=== PATIENT | male | born 1955 | race Caucasian/White ===

== ENCOUNTER 2022-08-09 12:20 | Inpatient (IN) | payer MEDICARE, MEDICAID ==
[~2022-08-09] VITALS: Ht 162.6 cm; Wt 70.3 kg
[~2022-08-09 12:20] MED LIST: APIX5TAB PO; DILT90 PO; HYDR10SY16 PO; METO25 PO; OXYC1TAB6 PO; TAMS0.4C32 PO; TRAM50TA4 PO
[2022-08-09 12:53] LABS: COVID AG,FIA SOURCE NASOPHARYNGEAL
[2022-08-09 12:59] LABS: ANION GAP 7 mmol/L (8-16); CALCIUM, TOTAL 8.4 mg/dL (8.8-10.5); CARBON DIOXIDE 29 mmol/L (22-29); CHLORIDE 107 mmol/L (98-107); CREATININE 0.92 mg/dL (0.60-1.30); GLUCOSE,RANDOM 160 mg/dL (70-110); POTASSIUM 3.4 mmol/L (3.5-5.1); SODIUM SERUM 143 mmol/L (136-145); UREA NITROGEN, BLOOD 6 mg/dL (7-18)
[2022-08-09 13:01] LABS: BASOPHILS % (AUTO) 1.3 % (0.0-2.0); EOSINOPHILS % (AUTO) 7.3 % (1.0-6.0); LYMPHOCYTES # (AUTO) 4.1 K/uL (1.0-4.8); LYMPHOCYTES % (AUTO) 64.8 % (22.0-44.0); MEAN CORPUSCULAR HEMOGLOBIN 29.6 pg (26.0-34.0); MEAN CORPUSCULAR HGB CONC 32.5 G/dL (31.0-37.0); MEAN CORPUSCULAR VOLUME 91 fL (80-100); MONOCYTES # (AUTO) 0.2 K/uL (0.1-1.0); MONOCYTES % (AUTO) 3.8 % (2.0-9.0); NEUTROPHILS # (AUTO) 1.4 K/uL (1.8-7.7); NEUTROPHILS % (AUTO) 22.8 % (40.0-70.0); PLATELET COUNT (AUTO) 153 K/uL (150-450); RED BLOOD CELL COUNT(AUTO) 4.72 MIL/uL (4.50-5.90)
[2022-08-09 13:02] LABS: GLOMERULAR FILTR. RATE CALC > 60 mL/min (>60)
[2022-08-09 13:04] LABS: ALANINE AMINOTRANSFERASE 16 U/L (12-78); ALBUMIN 3.6 g/dL (3.4-5.0); ALKALINE PHOSPHATASE 103 U/L (46-116); ASPARTATE AMINOTRANSFERASE 22 U/L (15-37); BILIRUBIN,TOTAL 0.3 mg/dL (0.1-1.0); TOTAL PROTEIN, SERUM 7.1 g/dL (6.4-8.2)
[2022-08-09] MEDS ORDERED: ACETAMINOPHEN 325 MG TABLET PO ONE (18:00)
[2022-08-10 03:52] LABS: AMPHET/METH SCREEN,URINE NEGATIVE (NEGATIVE); BARBITURATE SCREEN, URINE NEGATIVE (NEGATIVE); BENZODIAZEPINES SCREEN,URINE NEGATIVE (NEGATIVE); CANNABINOID SCREEN,URINE NEGATIVE (NEGATIVE); COCAINE SCREEN,URINE NEGATIVE (NEGATIVE); METHADONE SCREEN, URINE NEGATIVE (NEGATIVE); OPIATE SCREEN,URINE NEGATIVE (NEGATIVE)
[2022-08-10 03:53] LABS: PHENCYCLIDINE SCREEN,URINE NEGATIVE (NEGATIVE)
[2022-08-10] MEDS ORDERED: MELATONIN 5 MG TABLET PO ONE (04:00)
[2022-08-10] MEDS ORDERED: ChlordiazePOXIDE HCL 25 MG CAPSULE PO ONE ×2 (06:45→09:00)
[2022-08-10] MEDS ORDERED: POTASSIUM CHLORIDE 10 MEQ ER TABLET PO ONE (08:45)
[2022-08-10] MEDS ORDERED: ONDANSETRON HCL 4 MG TABLET PO ONE (09:00)
[2022-08-10] MEDS ORDERED: LORazepam 2 MG TABLET PO PRN (09:45)
[2022-08-10] MEDS ORDERED: ZOLPIDEM TARTRATE 10 MG TABLET PO PRN (09:45)
[2022-08-10] MEDS ORDERED: OLANZapine 5 MG TABLET PO PRN (09:45)
[2022-08-10 10:45] VITALS: BP 161/99
[2022-08-10 12:15] VITALS: BP 142/83
[2022-08-10] MEDS ORDERED: ASPI-1450 PO (14:39)
[2022-08-10] MEDS ORDERED: ATOR20TA65 PO (14:39)
[2022-08-10] MEDS ORDERED: FLUT16H NASAL (14:39)
[2022-08-10] MEDS ORDERED: DULO-114 PO (14:39)
[2022-08-10] MEDS ORDERED: FOLI-130 PO (14:39)
[2022-08-10] MEDS ORDERED: MONT-40 PO (14:39)
[2022-08-10] MEDS ORDERED: AMLO5TAB66 PO (14:39)
[2022-08-10] MEDS ORDERED: CETI10TA58 PO (14:39)
[2022-08-10] MEDS ORDERED: GABA-1181 PO (14:39)
[2022-08-10] MEDS ORDERED: RIVA20TA PO (14:40)
[2022-08-10] MEDS ORDERED: TAMS-13 PO (14:40)
[2022-08-10] MEDS ORDERED: MAG HYDROX/AL HYDROX/SIMETH ES 30 ML SUSPENSION UDCUP PO PRN (14:45)
[2022-08-10] MEDS ORDERED: BENZOCAINE/MENTHOL LOZENGE PO PRN (14:45)
[2022-08-10] MEDS ORDERED: PETROLATUM,WHITE 28 GM JELLY TP PRN (14:45)
[2022-08-10] MEDS ORDERED: DOCUSATE SODIUM 100 MG CAPSULE PO PRN (14:45)
[2022-08-10] MEDS ORDERED: BACITRACIN 28 GM OINTMENT TP PRN (14:45)
[2022-08-10] MEDS ORDERED: ACETAMINOPHEN 325 MG TABLET PO PRN (14:45)
[2022-08-10] MEDS ORDERED: ONDANSETRON HCL 4 MG TABLET PO PRN (14:45)
[2022-08-10] MEDS ORDERED: CloNIDine HCL 0.1 MG TABLET PO PRN (14:45)
[2022-08-10] MEDS ORDERED: LOPERAMIDE HCL 2 MG CAPSULE PO PRN (14:45)
[2022-08-10] MEDS ORDERED: MAGNESIUM HYDROXIDE SUSPENSION 30 ML UDCUP PO PRN (14:45)
[2022-08-10] MEDS ORDERED: OMEPRAZOLE 20 MG CAPSULE PO PRN (14:45)
[2022-08-10] MEDS ORDERED: ALBUTEROL SULFATE HFA 90 MCG/PUFF 8 GM INHALER IH PRN (14:45)
[2022-08-10 16:59] VITALS: BP 154/85
[2022-08-10] MEDS ORDERED: APIXABAN 5 MG TABLET PO SCH (17:00)
[2022-08-10] MEDS: METOPROLOL TARTRATE 25 MG TABLET PO SCH (18:20)
[2022-08-11] MEDS: TAMSULOSIN HCL 0.4 MG CAPSULE PO SCH (08:42)
[2022-08-11] MEDS: METOPROLOL TARTRATE 25 MG TABLET PO SCH ×2 (08:43→17:05)
[2022-08-11 08:45] VITALS: BP 139/87
[2022-08-11] MEDS: IBUPROFEN 600 MG TABLET PO PRN ×2 (08:45→23:07)
[2022-08-11 09:45] VITALS: BP 135/78
[2022-08-11 16:20] VITALS: BP 160/87
[2022-08-11] MEDS ORDERED: RIVAROXABAN 20 MG TABLET PO SCH (17:30)
[2022-08-11 23:07] VITALS: BP 132/85
[2022-08-12 09:00] VITALS: BP 150/92
[2022-08-12] MEDS: TAMSULOSIN HCL 0.4 MG CAPSULE PO SCH (09:33)
[2022-08-12] MEDS: METOPROLOL TARTRATE 25 MG TABLET PO SCH (09:33)
[2022-08-12] MEDS ORDERED: POTASSIUM CHLORIDE 20 MEQ ER TABLET PO ONE (11:00)
[2022-08-12 16:26] VITALS: BP 129/79
== END 2022-08-12 16:50 | disposition home or self-care (01) | DRG 881 ==
LOC: EMS 12:24 → 3EI 08-10 10:22
PROVIDERS: ADMIT Psychiatry & Neurology Psychiatry; ATTEND Psychiatry & Neurology Psychiatry
DX: F32.9 Major depressive disorder, single episode, unspecified (principal); I48.20 Chronic atrial fibrillation, unspecified; R45.851 Suicidal ideations; E78.5 Hyperlipidemia, unspecified; E87.6 Hypokalemia; F41.9 Anxiety disorder, unspecified; Z20.822 Contact with and (suspected) exposure to COVID-19; G47.00 Insomnia, unspecified; F10.129 Alcohol abuse with intoxication, unspecified; I10 Essential (primary) hypertension; J44.9 Chronic obstructive pulmonary disease, unspecified; K59.00 Constipation, unspecified; Y90.8 Blood alcohol level of 240 mg/100 ml or more; Z79.01 Long term (current) use of anticoagulants; Z87.891 Personal history of nicotine dependence; E05.90 Thyrotoxicosis, unspecified without thyrotoxic crisis or storm; Z71.41 Alcohol abuse counseling and surveillance of alcoholic; Z71.6 Tobacco abuse counseling
CPT/HCPCS: 70450; 72125; 80053; 84484; 85025; 93005; 99285; G0480; Q0162; Q9967